=== PATIENT | female | born 1945 | race Caucasian/White ===

== ENCOUNTER 2018-11-09 09:19 | Inpatient (IN) | payer OTHER ==
[~2018-11-09] VITALS: Ht 165.1 cm; Wt 68.0 kg
--- NOTE | ~2018-11-09 | EKG ---
[address] [address] ELECTROCARDIOGRAM REPORT Name: ISIDRO MEDINA JIMMY Room #: 350-P ADM IN M.R.#: [id number] Admission: 11/09/18 Attend Phys: Chintan Alas MD Discharge: Date of : 49 Report #: [id number] THIS REPORT FOR: //name// [facility] ED Test Date: 2018-11-09 Test Time: 12:10:02 Pat Name: ISIDRO MEDINA Department: Room: 350 Gender: F Portrait Artist: KIRBY : 1945 Requested By: Mague Mancini Order Number: [id number] MD: Ramesh Montana Measurements Intervals [place] Rate: 75 P: 73 PA: 151 QRS: 25 QRSD: 88 T: 41 QT: 428 QTc: 479 Interpretive Statements Sinus rhythm No previous ECG available for comparison Electronically Signed On 11-09-2018 20:48:13 PAPER PATTERN FOLDER by Ramesh Montana [email or web address] <ELECTRONICALLY SIGNED> By: Ramesh Montana MD 11/09/18 2048 1210 1210 MD MIA Senior
--- NOTE | ~2018-11-09 | PATH ---
[facility] [address] [place] [address] PATHOLOGY RPT PROCEDURE Name: ISIDRO DARDEN HELDER Room #: 350-P [facility] IN M.R.#: [id number] Admission: 11/09/18 Date of : 49 Discharge: 11/11/18 Report #: [id number] Path Case #: [id number] [facility] Accession Number: [id number] . 01 Material submitted: . BX OF GASTRITIS . 01 Clinical history: . Hematemesis, gastritis, esophagitis . 02 Diagnosis: Gastric mucosa, gastritis, rule out H. pylori, endoscopic biopsy: - Moderate reactive gastropathy with a fibrotic lamina propria. - No active ulcer identified. - Negative for intestinal metaplasia or atrophy. - Negative for Helicobacter pylori (properly controlled immunohistochemical stain performed). (IUV:mediation commissioner; 11/11/2018) MBR/11/11/2018 . 02 Electronically signed: . Mallory Boykin MD, Pathologist NPI- [id number] . 01 Gross description: . The specimen is received in formalin, labeled "Isidro Darden Helder, BX gastritis, rule out H. pylori", are three stephens soft tissue 0.2 cm, 0.3 cm and a 0.4 cm in greatest dimension, entirely submitted in A1. (SWS; 11/10/2018) SHS/SHS . 02 Pathologist provided ICD-10: K31.9 . 02 CPT . 373307, V35967 Specimen Comment: A courtesy copy of this report has been sent to Specimen Comment: [phone], , . Specimen Comment: Report sent to ,DR BENITEZ / DR PERKINS Specimen Comment: A duplicate report has been generated due to demographic updates. Performed at: [address], [place] [id number] MD Javier Ugalde MD Phone: [phone] Performed at: [address] [address] PATHOLOGY RPT PROCEDURE Name: ISIDRO DARDEN Room #: 350-P DIS IN M.R.#: [id number] Admission: 11/09/18 Date of : 49 Discharge: 11/11/18 Report #: [id number] Path Case #: [id number] [address] [place], [place] [id number] MD Mallory Boykin MD Phone: [phone]
--- NOTE | ~2018-11-09 | P ---
[facility] [place] [address] PROCEDURE REPORT Name: ISIDRO MEDINA Room #: 350-P [facility]..#: [id number] Admission: 11/09/18 Attend Phys: Chintan Alas MD Discharge: 11/11/18 Date of : 49 Report #: [id number] THIS REPORT FOR: //name// [facility] DATE OF SERVICE: 11/10/2018 PROCEDURE PERFORMED: Upper endoscopy. HISTORY OF PRESENT ILLNESS: The patient is a 73-year-old female who was admitted on 11/09/2018 with hematemesis, history of alcohol abuse. The patient does have heartburn symptoms for several years, also complains of mid epigastric abdominal pain. The patient had 300 mL of coffee-ground type emesis in the Emergency Room. Her hemoglobin on admission was 13.7. DESCRIPTION OF PROCEDURE: The risks and benefits of the procedure were explained to the patient, those risks including but not limited to bleeding, perforation, the risk of sedation. She understood these risks and gave informed consent. Sedation was given using propofol per Anesthesia. Next, using a standard Olympus upper endoscope, the scope was placed in the patient's mouth and advanced under direct vision through the esophagus, stomach and into the second portion of the duodenum. In the mid and distal esophagus, severe grade D erosive esophagitis was noted. No evidence of active bleeding in the stomach, mild gastritis was noted. No active bleeding. The pylorus was normal and patent. The duodenal bulb, first and second portion were normal other than a large duodenal diverticulum was noted. Again, no evidence of bleeding on exam. At this point, the scope was then withdrawn and the procedure terminated. The patient tolerated the procedure well. Biopsies of the stomach were obtained to rule out H. pylori today. IMPRESSION: 1. Severe grade D erosive esophagitis, likely source of coffee-ground emesis. No evidence of active bleeding. 2. Mild gastritis. 3. Duodenal diverticulum. RECOMMENDATIONS: 1. Continue PPI drip. 2. We will add liquid Carafate. 3. We will advance diet as tolerated. [facility] [address] [place] [address] PROCEDURE REPORT Name: ISIDRO MEDINA JIMMY Room #: 350-P [facility] IN M.R.#: [id number] Admission: 11/09/18 Attend Phys: Chintan Alas MD Discharge: 11/11/18 Date of : 49 Report #: [id number] Thank you for allowing me to participate in her care. By: [id number] Juan Antonio Coyle MD /nt
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
[~2018-11-09 09:19] MED LIST: LOMOTIL TABLET1 EACH PO; MEDROLDOSEPACK PO; NORCO 5-325 TA1 EACH PO; OMEPRAZOLE40 MG PO; PHENADOZ25 MG RC; ULTRAM 50MG TAB50 MG PO; ZOFRAN ODT4 MG PO
[2018-11-09 09:25] VITALS: BP 151/84
[2018-11-09 09:59] LABS: ABSOLUTE NEUTROPHILS 13.7 thou/uL (1.4-8.2); BASOPHILS 0.5 % (0.0-2.0); HEMATOCRIT 42.9 % (37.0-47.0); HEMOGLOBIN 13.7 gm/dL (12.0-15.0); LYMPHOCYTES 8.8 % (24.0-44.0); MCH 30.4 pg (26.0-34.0); MCHC 31.9 g/dL (28.0-37.0); MCV 95.1 fL (80.0-100.0); PLATELET COUNT 338 thou/uL (150-400); POLYS 82.7 % (36.0-66.0); RBC 4.51 mil/uL (4.20-5.00); RDW 13.2 % (10.5-14.5); WBC 16.6 thou/uL (4.0-11.0)
[2018-11-09 10:06] LABS: ANION GAP 11 mmol/L (7-16); BUN 20 mg/dL (7-18); CALCIUM 8.8 mg/dL (8.5-10.1); CHLORIDE 106 mmol/L (98-107); CO2 25 mmol/L (21-32); CREATININE 0.6 mg/dL (0.6-1.0); GLUCOSE 122 mg/dL (74-106); POTASSIUM 4.3 mmol/L (3.5-5.1); SODIUM 142 mmol/L (136-145)
[2018-11-09 10:15] LABS: ALBUMIN 3.3 g/dL (3.4-5.0); LIPASE 96 U/L (73-393); SGOT 36 U/L (15-37); SGPT 50 U/L (30-65); TOTAL BILIRUBIN 0.2 mg/dL (<0.1-1.0); TROPONIN-I <0.06 ng/mL (<0.06)
[2018-11-09 12:30] VITALS: BP 146/80
[2018-11-09 13:20] VITALS: BP 149/78
[2018-11-09 13:54] LABS: URINE BILIRUBIN NEGATIVE (Negative); URINE BLOOD TRACE (Negative); URINE CLARITY CLEAR; URINE COLOR YELLOW; URINE GLUCOSE-RANDOM* 1+ (Negative); URINE KETONES TRACE (Negative); URINE NITRITE-REFLEX NEGATIVE (Negative); URINE PROTEIN (DIPSTICK) NEGATIVE (Negative); URINE SPECIFIC GRAVITY 1.025 (1.005-1.035); URINE UROBILINOGEN 0.2 E.U./dl (0.2-1.0)
[2018-11-09 13:55] LABS: URINE LEUKOCYTES-REFLEX TRACE (Negative)
[2018-11-09 14:04] LABS: AMP/METHAMP Negative (Negative); BARBITURATES Negative (Negative); BENZODIAZEPINES Negative (Negative); COCAINE Negative (Negative); METHADONE Negative (Negative); OPIATES Negative (Negative); PCP Negative (Negative)
[2018-11-09 14:15] VITALS: BP 146/80
[2018-11-09 21:05] VITALS: BP 136/78
[2018-11-10 00:21] VITALS: BP 126/73
[2018-11-10 04:25] VITALS: BP 131/85
[2018-11-10 05:42] LABS: HEMATOCRIT 36.3 % (37.0-47.0); HEMOGLOBIN 11.8 gm/dL (12.0-15.0); MCH 30.9 pg (26.0-34.0); MCHC 32.5 g/dL (28.0-37.0); RBC 3.82 mil/uL (4.20-5.00); RDW 13.1 % (10.5-14.5); WBC 11.3 thou/uL (4.0-11.0)
[2018-11-10 05:54] LABS: CALCIUM 8.2 mg/dL (8.5-10.1); CREATININE 0.8 mg/dL (0.6-1.0); POTASSIUM 3.9 mmol/L (3.5-5.1)
[2018-11-10 07:56] VITALS: BP 136/76
[2018-11-10 12:18] VITALS: BP 133/77
[2018-11-10 15:49] VITALS: BP 112/62
[2018-11-10 19:20] VITALS: BP 121/71
[2018-11-11 03:10] VITALS: BP 144/89
[2018-11-11 08:53] VITALS: BP 159/90
[2018-11-11 12:54] VITALS: BP 139/85
[2018-11-11] MEDS ORDERED: PROTONIX40 M1 PO (13:53)
[2018-11-11] MEDS ORDERED: CARAFATE 11 GM/10 M1 PO (13:53)
[2018-11-11 13:59] VITALS: BP 139/85
== END 2018-11-11 15:03 | disposition home or self-care (01) | DRG 380 ==
LOC: ER 09:19 → 3W 12:22 → EROBS 12:22 → 3W 14:22
PROVIDERS: Hospitalist; Student in an Organized Health Care Education/Training Program
PROC: 0DB68ZX Excision of Stomach, Via Natural or Artificial Opening Endoscopic, Diagnostic (ICD-10-PCS; principal; 2018-11-10)
DX: K22.11 Ulcer of esophagus with bleeding (principal); E43 Unspecified severe protein-calorie malnutrition; F10.10 Alcohol abuse, uncomplicated; I10 Essential (primary) hypertension; M19.011 Primary osteoarthritis, right shoulder; K20.9 Esophagitis, unspecified; K29.70 Gastritis, unspecified, without bleeding; K57.10 Diverticulosis of small intestine without perforation or abscess without bleeding; E78.00 Pure hypercholesterolemia, unspecified; Z90.49 Acquired absence of other specified parts of digestive tract; Z90.710 Acquired absence of both cervix and uterus; Z87.891 Personal history of nicotine dependence; Z68.25 Body mass index [BMI] 25.0-25.9, adult; Z79.899 Other long term (current) drug therapy; Z71.41 Alcohol abuse counseling and surveillance of alcoholic
CPT/HCPCS: 10879; 62110; 62900

== ENCOUNTER 2021-09-19 12:19 | Emergency (ER) | payer OTHER ==
[~2021-09-19] VITALS: Ht 157.5 cm; Wt 59.0 kg
[~2021-09-19 12:19] MED LIST changes: +CARAFATE 11 GM/10 M1 PO; +PROTONIX40 M1 PO
[2021-09-19 12:36] VITALS: BP 156/83
[2021-09-19] MEDS ORDERED: ZANAFLEX4 MG PO (13:17)
[2021-09-19] MEDS ORDERED: MOBIC7.5 MG PO (13:17)
== END 2021-09-19 13:20 | disposition home or self-care (01) ==
LOC: ER 12:19
DX: M25.512 Pain in left shoulder (principal); M62.838 Other muscle spasm; E78.00 Pure hypercholesterolemia, unspecified